=== PATIENT | male | born 1955 | race Caucasian/White ===

== ENCOUNTER → 2019-07-24 | Emergency (ER) | payer SELFPAY, MEDICAID ==
[~2019-07-24] MED LIST: Lisinopril 20mg tab ONE; metFORMIN 500mg tab ONE
--- NOTE | 2019-07-24 11:38 | Emergency Room Report ---
History of Present Illness General Source: Patient, Law Enforcement Present Illness HPI Patient has diabetes hypertension and osteoarthritis. He also has COPD. He has been drinking. He was arrested on outstanding warrants and is in custody and here for medical clearance. The patient denies any pain at this time aside from his hips and knees that he says is constant. He denies having withdrawal seizures. His last drink was yesterday morning. He last took his metformin yesterday morning. Pain rated No sore throat, chest pain, palpitations, nausea, vomiting, diarrhea, dysuria, abdominal pain, rashes, depression, anxiety, visual changes, dizziness, headache. Patient History Past Medical History: see triage record Social History: Reports: alcohol use; Denies: smoking - Prior, drug use Social History Narrative In custody Reviewed Nursing Documentation: PMH: Agreed; PSxH: Agreed Review of Systems All Other Systems: negative except mentioned in HPI Physical Exam see scanned reports Sp02 EP Interpretation: reviewed General Appearance: well appearing, no apparent distress, GCS 15, non-toxic, other - Slightly disheveled Head: normocephalic, atraumatic Eyes: bilateral eye normal inspection, bilateral eye PERRL, bilateral eye EOMI ENT: moist mucus membranes Neck: supple Respiratory: chest non-tender, no respiratory distress, wheezing - Minimal expiratory Cardiovascular #1: regular rate, rhythm Cardiovascular #2: 2+ radial (L) Gastrointestinal: normal inspection, normal bowel sounds, non tender, no mass, non-distended Musculoskeletal: back normal, normal range of motion, gait/station normal Neurologic: alert, oriented x3, grossly normal, other - No tremor Psychiatric: mood/affect normal Skin: no rash, warm/dry Medical Decision Making Diagnostic Impression: Primary Impression: Diabetes Qualified Codes: E11.9 - Type 2 diabetes mellitus without complications Additional Impressions: Hypertension Qualified Codes: I10 - Essential (primary) hypertension Osteoarthritis Qualified Codes: M19.91 - Primary osteoarthritis, unspecified site Alcohol abuse ER Course Patient with history of diabetes and hypertension and COPD presents for medical clearance. Also has a history of recent alcohol abuse. Clinically the patient is not dehydrated and appears stable without respiratory distress. At this point patient needs prescriptions for his medications and is given analgesia here. Patient given a dose of metformin and lisinopril in addition to Tylenol. Discussed findings with patient and requested definitive other treatment at this time. Declined further treatment. Patient stable for outpatient observation and treatment. see scanned reports Status: improved Disposition: D/C TO LAW [employer] IN CUST Condition: Improved Referrals: NOT CHOSEN IPA/,REFERRING (PCP) Yeison Palomino MD Jul 24, 2019 11:38
== END ==
LOC: EMR 04:32
DX: E11.9 Type 2 diabetes mellitus without complications (principal); I10 Essential (primary) hypertension; M19.91 Primary osteoarthritis, unspecified site; F10.10 Alcohol abuse, uncomplicated; J44.9 Chronic obstructive pulmonary disease, unspecified
CPT/HCPCS: 99282